=== PATIENT | male | born 1945 | race Caucasian/White ===

== ENCOUNTER → 2019-03-08 | Outpatient (CLI) | payer MEDICARE, OTHER ==
[~2019-03-08] MED LIST: ATOR10 PO; Multiple Vitam1 EAC1 PO; NAPR500 PO; OMEP40CA12 PO; ROSU5 PO; TRIBENZOR; TRIBENZOR 40-11 EAC1 PO; VITAMIN D-32000 UNI1 PO
== END | disposition home or self-care (01) ==
LOC: PLD 12:12 → LAB SHORT 12:12
DX: L30.8 Other specified dermatitis (principal)
CPT/HCPCS: 88305; 88312

== ENCOUNTER → 2019-11-29 | Outpatient (CLI) | payer MEDICARE, OTHER | END | disposition home or self-care (01) | LOC: LAB SHORT 08:26 → PLD 08:26 | DX: D48.5 Neoplasm of uncertain behavior of skin (principal) | CPT/HCPCS: 88305 ==

== ENCOUNTER → 2019-12-26 | Outpatient (CLI) | payer MEDICARE, OTHER ==
[2019-12-28 14:42] LABS: Stool Occult Bld Immuno 1 Negative (NEGATIVE)
== END ==
LOC: LAB 09:35 → LAB SHORT 09:35
PROVIDERS: Family Medicine
DX: D64.9 Anemia, unspecified (principal)
CPT/HCPCS: G0328

== ENCOUNTER 2020-02-09 08:19 | Day surgery (SDC) | payer MEDICARE, OTHER ==
[~2020-02-09] VITALS: Ht 172.7 cm; Wt 65.0 kg
--- NOTE | 2020-02-09 08:57 | NUR ---
02/09/20 0857 Gayle Reis 1 TRY RIGHT HAND BLEW
== END 2020-02-09 10:40 | disposition home or self-care (01) ==
LOC: ORSCSDS 08:19
PROVIDERS: Internal Medicine Gastroenterology
PROC: 0DBL8ZX Excision of Transverse Colon, Via Natural or Artificial Opening Endoscopic, Diagnostic (ICD-10-PCS; principal; 2020-02-09 09:45)
PROC: 0DBK8ZX Excision of Ascending Colon, Via Natural or Artificial Opening Endoscopic, Diagnostic (ICD-10-PCS; principal; 2020-02-09 09:45)
DX: Z12.11 Encounter for screening for malignant neoplasm of colon (principal); Z86.010 Personal history of colon polyps; D12.2 Benign neoplasm of ascending colon; D12.3 Benign neoplasm of transverse colon; K57.30 Diverticulosis of large intestine without perforation or abscess without bleeding; K64.1 Second degree hemorrhoids; I10 Essential (primary) hypertension; E78.00 Pure hypercholesterolemia, unspecified; K21.9 Gastro-esophageal reflux disease without esophagitis; Z79.899 Other long term (current) drug therapy
CPT/HCPCS: 88305; J2704; J7120

== ENCOUNTER 2020-06-14 08:33 | Day surgery (SDC) | payer MEDICARE, OTHER ==
[~2020-06-14] VITALS: Ht 172.7 cm; Wt 71.1 kg
[2020-06-14] MEDS ORDERED: AMLO5 (09:10)
[2020-07-05] MEDS ORDERED: TRIBENZOR PO (10:03)
== END 2020-06-14 10:30 | disposition home or self-care (01) ==
LOC: ORSCSDS 08:33
PROVIDERS: Ophthalmology
PROC: 08RJ3JZ Replacement of Right Lens with Synthetic Substitute, Percutaneous Approach (ICD-10-PCS; principal; 2020-06-14 10:00)
DX: H25.11 Age-related nuclear cataract, right eye (principal); H52.201 Unspecified astigmatism, right eye; I10 Essential (primary) hypertension; E78.00 Pure hypercholesterolemia, unspecified; Z79.899 Other long term (current) drug therapy
CPT/HCPCS: J2001; J2250; J3010; J3301; J7040; V2632

== ENCOUNTER 2020-07-12 09:08 | Day surgery (SDC) | payer MEDICARE, OTHER ==
[~2020-07-12] VITALS: Ht 170.2 cm; Wt 70.7 kg
[~2020-07-12 09:08] MED LIST changes: +AMLO5; +TRIBENZOR PO
--- NOTE | 2020-07-12 09:59 | NUR ---
07/12/20 0959 TALITA PATEL 0956 TETRACAINE 1 DROP PLACED TO OPERATIVE EYE, 0958 PLEDGETT PLACED TO OPERATIVE EYE PER ORDERS, TAPE PLACED TO OPERATIVE EYE, PATIENT TOLERATED WELL
== END 2020-07-12 11:13 | disposition home or self-care (01) ==
LOC: ORSCSDS 09:08
PROVIDERS: Ophthalmology
PROC: 08RK3JZ Replacement of Left Lens with Synthetic Substitute, Percutaneous Approach (ICD-10-PCS; principal; 2020-07-12 10:30)
DX: H25.12 Age-related nuclear cataract, left eye (principal); H52.202 Unspecified astigmatism, left eye; I10 Essential (primary) hypertension; K21.9 Gastro-esophageal reflux disease without esophagitis; Z79.899 Other long term (current) drug therapy
CPT/HCPCS: A9270; J2001; J2250; J3010; J3301; J7040; V2632

== ENCOUNTER 2023-01-10 09:29 | Day surgery (SDC) | payer MEDICARE, OTHER ==
[~2023-01-10] VITALS: Ht 170.2 cm; Wt 70.6 kg
[2023-01-10] MEDS ORDERED: OLME20 PO (10:12)
[2023-01-10] MEDS ORDERED: AMLO5 PO (10:12)
[2023-01-10] MEDS ORDERED: HYDCHL25 PO (10:12)
[2023-01-10 13:52] VITALS: BP 153/84
--- NOTE | 2023-01-10 14:13 | NUR ---
01/10/23 1413 Janie Fields PATIENT LEFT WITH PERSONAL BELONGINGS, GLASSES, CLOTHES, WATCH, AND WALLET.
== END 2023-01-10 14:06 | disposition home or self-care (01) ==
LOC: ORSCSDS 09:29
PROVIDERS: Orthopaedic Surgery
PROC: 0SBC4ZZ Excision of Right Knee Joint, Percutaneous Endoscopic Approach (ICD-10-PCS; principal; 2023-01-10 11:15)
DX: M17.11 Unilateral primary osteoarthritis, right knee (principal); M94.261 Chondromalacia, right knee; M23.200 Derangement of unspecified lateral meniscus due to old tear or injury, right knee; M23.203 Derangement of unspecified medial meniscus due to old tear or injury, right knee; I10 Essential (primary) hypertension; E78.5 Hyperlipidemia, unspecified; K21.9 Gastro-esophageal reflux disease without esophagitis; Z79.899 Other long term (current) drug therapy
CPT/HCPCS: 88305; A9270; J0690; J1100; J1170; J2405; J2704; J3010; J7120

== ENCOUNTER 2024-03-25 10:58 | Inpatient (IN) | payer MEDICARE, OTHER ==
[~2024-03-25] VITALS: Ht 172.7 cm; Wt 71.6 kg
[~2024-03-25 10:58] MED LIST changes: +AMLO5 PO; +HYDCHL25 PO; +OLME20 PO
[2024-03-25 11:37] LABS: BASOPHILS ABSOLUTE AUTO 0.01 K/mm3 (0.00-0.23); BASOPHILS PERCENT AUTO 0 % (0-2); EOSINOPHILS ABSOLUTE AUTO 0.02 K/mm3 (0.00-0.68); EOSINOPHILS PERCENT AUTO 0 % (0-6); Hematocrit 21.4 % (37.0-53.0); Hemoglobin 7.2 g/dL (13.5-17.5); IMMATURE GRAN ABSOLUTE AUTO 0.04 K/mm3 (0.00-0.10); IMMATURE GRAN PERCENT AUTO 1 % (0-1); LYMPHOCYTES ABSOLUTE AUTO 0.89 K/mm3 (0.84-5.20); LYMPHOCYTES PERCENT AUTO 11 % (21-46); MONOCYTES ABSOLUTE AUTO 0.51 K/mm3 (0.16-1.47); MONOCYTES PERCENT AUTO 7 % (4-13); Mean Corpuscular HGB 33.3 pg (26.0-34.0); Mean Corpuscular HGB Conc 33.6 g/dL (31.5-36.5); Mean Corpuscular Volume 99 fL (80-100); Mean Platelet Volume 10.4 fL (9.1-12.4); NEUTROPHILS ABSOLUTE AUTO 6.34 K/mm3 (1.96-9.15); NEUTROPHILS PERCENT AUTO 81 % (41-73); Platelet Count 194 K/mm3 (150-400); RDW Coefficient Variation 13.6 % (11.7-14.2); Red Blood Cell Count 2.16 M/mm3 (4.30-5.90); White Blood Cell Count 7.81 K/mm3 (4.00-11.30)
[2024-03-25 11:53] LABS: Albumin, Blood 3.4 g/dL (3.4-5.0); Albumin/Globulin Ratio 1.1 (0.8-1.8); Bilirubin, Total 0.5 mg/dL (0.1-1.0); Calcium, Blood 9.1 mg/dL (8.5-10.1); Creatinine, Blood 1.38 mg/dL (0.60-1.20); Globulin, Blood 3.1 g/dL (2.2-4.0); Potassium, Blood 4.5 mmol/L (3.5-5.5); Total Protein, Blood 6.5 g/dL (6.4-8.2)
[2024-03-25] MEDS ORDERED: Pantoprazole Sodium 40 MG Injection IV ONE (12:00)
[2024-03-25] MEDS ORDERED: NS 1,000 ML IV ONE (12:57)
[2024-03-25] MEDS ORDERED: AMLODIPINE BESYL5 MG PO (14:09)
[2024-03-25] MEDS ORDERED: OMEP20ER PO (14:11)
[2024-03-25] MEDS ORDERED: Lactated Ringer's 1,000 ML IV SCH (14:55)
[2024-03-25] MEDS ORDERED: Ondansetron HCl 2 MG / ML 2ML Vial IV PRN (14:55)
[2024-03-25] MEDS ORDERED: FLU VACC TS2024-25(6MOS UP)/PF 45 MCG/0.5 ML SYRINGE IM PRN (15:00)
[2024-03-25] MEDS ORDERED: HydrALAZINE HCl 20 MG / ML 1ML Vial IV PRN (15:05)
[2024-03-25] MEDS ORDERED: LORazepam 2 MG/ML 1ML Injection IV PRN ×3 (15:05)
[2024-03-25] MEDS ORDERED: Folic Acid 1 MG in NS 50 ML IV SCH (15:07)
[2024-03-25] MEDS ORDERED: Thiamine HCl 100 MG in NS 50 ML IV SCH (15:08)
[2024-03-25 16:18] VITALS: BP 108/84
[2024-03-25] MEDS ORDERED: NS 500 ML IV ONE (16:28)
[2024-03-25] MEDS ORDERED: Pantoprazole Sodium 40 MG Injection IV SCH (16:30)
[2024-03-25] MEDS ORDERED: NS 500 ML IV SCH (16:30)
[2024-03-25 16:56] VITALS: BP 119/93
[2024-03-25 17:23] VITALS: BP 143/88
--- NOTE | 2024-03-25 17:38 | NUR ---
ARRIVAL TO PCU REPORT RECIEVED FROM ER NURSE AT 1542. PT ARRIVED TO PCU AT 1605 VIA GURNEY AND ON RA. PT ABLE TO TRANSFER SLEF FROM [facility] [place] TO PCU BE WITH MINIMAL ASSISTANCE TOLERATED WELL. PT A/OX3-4, FORGETFUL AT TIMES. LUNGS CLEAR T/O, NO REPORT OF SOB. PT SR WITH STABLE BP, NO REPORT OF CHEST PAIN/PRESSURE AT TIME OF ARRIVAL. DR HURST TO PT ROOM SHORTLY AFTER ARRIVING TO PCU. BLOOD STARTED PER ORDERS, BLOOD CONSENT FILLED OUT BY DR HURST AND PT. CONSENT WITH ARIS. PT NOTED TO HAVE SKIN TEARS OF LEFT ELBOW, PHOTO TAKEN AND IN CHART. PT TO BE FULL LIQUID DIET FOR MESHA, WATER ONLY AFTER DINNER UNTIL 0600. AFTER 0600 PT TO BE NPO FOR PROCEDURE IN THE MORNING.
[2024-03-25 18:43] VITALS: BP 134/76
[2024-03-25 19:54] VITALS: BP 86/62
--- NOTE | 2024-03-25 20:02 | NUR ---
ASSUMPTION OF CARE THIS RN ASSUMED CARE OF PT AT 1900. UPON INITIAL ASSESSMENT PT HAS JUST COMPLETED PRBC 2 OF 2. PT HAD DARK BM PER DAY RN. PT IS ALERT AND ORIENTED, DENIES PAIN. HEMODYNAMICALLY STABLE. HR 80, BP 130/77, SPO2 > 92% ON ROOM AIR. CALL LIGHT WITHIN REACH, PT ABLE TO APPROPRIATELY EXPRESS HIS NEEDS. BED ALARM IN USE FOR SAFETY MANAGEMENT.
[2024-03-25 20:07] VITALS: BP 130/77
[2024-03-25 21:31] LABS: Hematocrit 26.7 % (37.0-53.0); Hemoglobin 9.2 g/dL (13.5-17.5)
[2024-03-25] MEDS ORDERED: TraZODone HCl 50 MG Tab PO PRN (22:15)
[2024-03-26] VITALS (30 sets, daily range): BP systolic 66–135; BP diastolic 49–113
[2024-03-26 01:34] LABS: Hematocrit 24.8 % (37.0-53.0); Hemoglobin 8.9 g/dL (13.5-17.5)
[2024-03-26 05:32] LABS: BASOPHILS ABSOLUTE AUTO 0.03 K/mm3 (0.00-0.23); BASOPHILS PERCENT AUTO 1 % (0-2); EOSINOPHILS ABSOLUTE AUTO 0.14 K/mm3 (0.00-0.68); EOSINOPHILS PERCENT AUTO 3 % (0-6); Hematocrit 25.2 % (37.0-53.0); Hemoglobin 9.1 g/dL (13.5-17.5); IMMATURE GRAN ABSOLUTE AUTO 0.02 K/mm3 (0.00-0.10); IMMATURE GRAN PERCENT AUTO 0 % (0-1); LYMPHOCYTES ABSOLUTE AUTO 1.35 K/mm3 (0.84-5.20); LYMPHOCYTES PERCENT AUTO 26 % (21-46); MONOCYTES ABSOLUTE AUTO 0.65 K/mm3 (0.16-1.47); MONOCYTES PERCENT AUTO 13 % (4-13); Mean Corpuscular HGB 33.1 pg (26.0-34.0); Mean Corpuscular HGB Conc 36.1 g/dL (31.5-36.5); Mean Platelet Volume 9.9 fL (9.1-12.4); NEUTROPHILS ABSOLUTE AUTO 2.93 K/mm3 (1.96-9.15); NEUTROPHILS PERCENT AUTO 57 % (41-73); Platelet Count 161 K/mm3 (150-400); RDW Coefficient Variation 15.6 % (11.7-14.2); RDW Standard Deviation 51.2 fL (35.1-46.3); Red Blood Cell Count 2.75 M/mm3 (4.30-5.90); White Blood Cell Count 5.12 K/mm3 (4.00-11.30)
[2024-03-26 05:53] LABS: Albumin, Blood 3.1 g/dL (3.4-5.0); Albumin/Globulin Ratio 1.1 (0.8-1.8); Bilirubin, Total 0.8 mg/dL (0.1-1.0); Bun/Creatinine Ratio 29.1 (12.0-20.0); Calcium, Blood 9.2 mg/dL (8.5-10.1); Creatinine, Blood 1.1 mg/dL (0.60-1.20); Globulin, Blood 2.7 g/dL (2.2-4.0); Magnesium, Blood 1.9 mg/dL (1.6-2.4); Potassium, Blood 3.9 mmol/L (3.5-5.5); Total Protein, Blood 5.8 g/dL (6.4-8.2)
[2024-03-26 05:56] LABS: Mean Corpuscular Volume 92 fL (80-100)
--- NOTE | 2024-03-26 06:50 | NUR ---
SHIFT SUMMARY PT ALERT AND ORIENTED x4, COOPERATIVE WITH CARE. ABLE TO APPROPRIATELY EXPRESS NEEDS. TRAZADONE ADDED PRN QHS FOR INSOMNIA. PT SEEMED TO SLEEP WELL AFTER. NO ACUTE CHANGES OVERNIGHT. PT AWAITING EGD TODAY. HAS BEEN NPO SINCE 0600.
[2024-03-26] MEDS ORDERED: NS 500 ML IV SCH (07:10)
[2024-03-26] MEDS ORDERED: propofoL 40 ML IV ONE (07:16)
--- NOTE | 2024-03-26 08:01 | NUR ---
03/26/24 0801 Alek Patel CONFIRMED AND REVIEWED H&P, MEDCICATIONS, ALLERGIES, MEDICAL HISTORY, RESPIRATORY HISTORY, VITAL SIGNS, 3-LEAD EKG, CONSENTS, AND PHYSICIAN ORDERS. PATIENT CONFIRMS NPO STATUS AND AGREES WITH SCHEDULED PROCEDURE. MONITOR INTACT WITH CONTINUOUS PULSE OXIMETRY, CAPNOGRAPHY, 3-LEAD EKG, INTERMITTENT BP. SUPPLEMENTAL O2 TO BE TITRATED THROUGHOUT PROCEDURE TO MAINTAIN O2 SATURATION ABOVE 90%. PATIENT DETERMINED TO BE ASA APPROPRIATE FOR PROPOFOL SEDATION PRIOR TO START OF PROCEDURE BY DR. HURST.
[2024-03-26] MEDS ORDERED: Midazolam HCl 1MG / ML 2ML Vial ONE ×2 (08:15→08:28)
[2024-03-26] MEDS ORDERED: EpiNEPhrine 1 MG/1 ML 1ML Vial ONE (08:15)
[2024-03-26] MEDS ORDERED: Thiamine HCl 100 MG Tab PO SCH (09:00)
[2024-03-26] MEDS ORDERED: Folic Acid 1 MG TAB PO SCH (09:00)
--- NOTE | 2024-03-26 09:14 | NUR ---
PT DOWN TO PROCEDURE AT 0745 VIA [employer]. PT RETURNED FROM PROCEDURE AT 0900 VIA [employer]. PT SLEEPY FROM MEDICATIONS USED DURING PROCEDURE, BED ALARM IN PLACE WITH CALL LIGHT IN PT'S LAP. PT INSTRUCTED TO AND NOT TO ATTEMP TO GET UP AT THIS TIME, PT VERBALIZED UNDERSTANDING. REPORT AT BEDSIDE FORM TAY RODRIGUEZ. MARÍA.
[2024-03-26 10:02] LABS: Hematocrit 27.5 % (37.0-53.0); Hemoglobin 9.5 g/dL (13.5-17.5)
[2024-03-26 13:26] LABS: Hematocrit 25.5 % (37.0-53.0)
[2024-03-26] MEDS ORDERED: B-1100 M1 PO (14:30)
[2024-03-26] MEDS ORDERED: FOLI1 PO (14:30)
[2024-03-26] MEDS ORDERED: TRAZ50 PO (14:31)
--- NOTE | 2024-03-26 16:14 | NUR ---
DISCHARGE UPDATE DISCAHRGE PACKET GONE OVER WITH PT AT 1545. PT DISCHARGED AT 1605. PT DECLINED WHEELCAHIR AND WANTED TO WAIT AT THE MAIN ENTERANCE FOR HIS TO PICK HIM UP. DISCHARGE PACKET WITH PT AT TIME OF DISCHARGE ALONG WITH PERSONAL BELONGINGS.
[2024-03-26] MEDS ORDERED: Omeprazole 20 MG CapCR PO SCH (16:30)
== END 2024-03-26 17:15 | disposition home or self-care (01) | DRG 378 ==
LOC: ER 10:58 → PCU 14:55
PROVIDERS: Emergency Medicine; Internal Medicine Gastroenterology; ADMIT Family Medicine
PROC: 30233N1 Transfusion of Nonautologous Red Blood Cells into Peripheral Vein, Percutaneous Approach (ICD-10-PCS; 2024-03-25)
PROC: HZ2ZZZZ Detoxification Services for Substance Abuse Treatment (ICD-10-PCS; 2024-03-26)
PROC: 0W3P8ZZ Control Bleeding in Gastrointestinal Tract, Via Natural or Artificial Opening Endoscopic (ICD-10-PCS; principal; 2024-03-26 08:00)
PROC: 0DB68ZX Excision of Stomach, Via Natural or Artificial Opening Endoscopic, Diagnostic (ICD-10-PCS; 2024-03-26 08:00)
DX: K26.4 Chronic or unspecified duodenal ulcer with hemorrhage (principal); D62 Acute posthemorrhagic anemia; F10.10 Alcohol abuse, uncomplicated; E78.5 Hyperlipidemia, unspecified; M10.9 Gout, unspecified; M19.90 Unspecified osteoarthritis, unspecified site; K63.5 Polyp of colon; M72.0 Palmar fascial fibromatosis [Dupuytren]; N18.31 Chronic kidney disease, stage 3a; I12.9 Hypertensive chronic kidney disease with stage 1 through stage 4 chronic kidney disease, or unspecified chronic kidney disease; I95.9 Hypotension, unspecified; Z88.8 Allergy status to other drugs, medicaments and biological substances; Z98.1 Arthrodesis status
CPT/HCPCS: 36415; 36430; 80053; 83735; 85014; 85018; 85025; 86850; 86900; 86901; 86923; 88305; 88342; 93005; 93010; 94760; 96374; 99285-25; A9270; J0171; J2250; J2470; J2704; J3411; J7030; J7040; P9016